=== PATIENT | female | born 1985 | race Caucasian/White ===

== ENCOUNTER → 2018-03-21 | Outpatient (CLI) | payer OTHER | LOC: GMAJ 17:14 | PROVIDERS: ATTEND Family Medicine | DX: E55.9 Vitamin D deficiency, unspecified (principal) ==

== ENCOUNTER 2019-06-03 20:45 | Emergency (ER) | payer MEDICARE, MEDICAID ==
[2019-06-03 21:07] VITALS: TEMP 99.5; O2SAT 99
--- NOTE | 2019-06-03 21:16 | ED.PDOC ---
History of Present Illness - General Chief Complaint: Lower Extremity Injury Stated Complaint: left mid foot pain R/T fall Time Seen by Provider: 06/03/19 21:12 Source: patient, other - mother Exam Limitations: no limitations - History of Present Illness Initial Comments: Pt is a 33 y/o with multiple medical problems who was at home and lost her balance and fell, hurting her left foot. Pt denies any other symptoms. Left foot pain worse with walking/bearing weight. Improved with elevation and rest. Pt denies numbness/tingling. All other ROS are negative. Occurred: just prior to arrival Pain - Lower Extremity: moderate: Left Foot - mid foot, lateral Method of Injury: fell, twisted Improving Factors: rest Worsening Factors: movement, other - standing Allergies/Adverse Reactions: Allergies NO KNOWN ALLERGY Allergy (Verified 06/03/19 21:07) Review of Systems - Review of Systems Constitutional: States: no symptoms reported EENTM: States: no symptoms reported Respiratory: States: no symptoms reported Cardiology: States: no symptoms reported Gastrointestinal/Abdominal: States: no symptoms reported Genitourinary: States: no symptoms reported Musculoskeletal: States: see HPI Skin: States: no symptoms reported Neurological: States: no symptoms reported All other Systems: Reviewed and Negative Past Medical History (General) - Patient Medical History Hx Seizures: No Hx Stroke: No Hx Dementia: No Hx Asthma: No Hx of COPD: No Hx Cardiac Disorders: No Hx Congestive Heart Failure: No Hx Pacemaker: No Hx Hypertension: No Hx Thyroid Disease: No Hx Diabetes: No Hx Gastroesophageal Reflux: No Hx Renal Disease: No Hx Cancer: No Hx of HIV: No Hx Hepatitis C: No Hx MRSA: No Surgical History: tonsillectomy, other - shunt - Vaccination History Hx Tetanus, Diphtheria Vaccination: No Hx Influenza Vaccination: No Family Medical History - Family History Mother Living Status: Still Living Physical Exam - Physical Exam General Appearance: Alert, Comfortable, Well Developed, Well Groomed, Well Hydrated, Well Nourished Eyes, Ears, Nose, Throat: PERRL/EOMI, normal ENT inspection Neck: non-tender, full range of motion, supple, normal inspection Cardiovascular/Respiratory: regular rate, rhythm, no M/R/G, normal peripheral pulses, normal breath sounds, no respiratory distress Gastrointestinal/Abdominal: non-tender, no hernia Back: normal inspection, no CVA tenderness, no vertebral tenderness Thigh/Hip: normal inspection, non-tender, no evidence of injury Leg: normal inspection, non-tender, no evidence of injury, normal ROM Knee: normal inspection, non-tender, no evidence of injury, normal ROM Ankle: normal inspection, non-tender, no evidence of injury, normal ROM Foot: bone tenderness - left foot, mid, just lateral to midline. , ecchymosis, swelling Neuro/Tendon: normal sensation, normal motor functions, normal tendon functions, no evidence tendon injury Mental Status: alert, oriented x 3 Skin: rash - small ecchymosis on left lateral mid foot. Progress - EKG/XRAY/CT XRAY: left foot Xray Comments: Soft tissue swelling, no frx Departure - Departure Clinical Impression: Sprain of left ankle or foot Disposition: Discharge to Home or Self Care Condition: Good Departure Forms: ED Discharge - Pt. Copy, Patient Portal Self Enrollment Instructions: Foot Sprain (DC) Activity: increase activity as tolerated, walking as tolerated Referrals: Sid Maxwell MD [Primary Care Provider] - 1-2 Weeks
--- NOTE | 2019-06-03 21:33 | RAD ---
EXAM DESCRIPTION: Foot, left 3 Views; 3 views CLINICAL HISTORY: 33 years Female, lateral foot swelling s/p trip and fall. COMPARISON: None. FINDINGS: Negative for acute fracture, dislocation, or radiopaque foreign body. Lateral foot tissue soft tissue swelling. IMPRESSION: Lateral foot soft tissue swelling without fracture or dislocation. Electronically signed by: Remi Low MD 06/03/2019 9:31 PM CDT
[2019-06-03 22:22] VITALS: BP 133/87
== END 2019-06-03 21:50 | disposition home or self-care (01) ==
LOC: ER 20:45
DX: S93.401A Sprain of unspecified ligament of right ankle, initial encounter (principal); S90.32XA Contusion of left foot, initial encounter; W18.30XA Fall on same level, unspecified, initial encounter; Y92.009 Unspecified place in unspecified non-institutional (private) residence as the place of occurrence of the external cause

== ENCOUNTER 2019-10-10 16:05 | Emergency (ER) | payer MEDICARE, MEDICAID ==
--- NOTE | 2019-10-10 18:16 | ED.PDOC ---
History of Present Illness - General Chief Complaint: GI Problem Stated Complaint: Recurrent nausea and vomiting Time Seen by Provider: 10/10/19 17:05 Source: patient, RN notes reviewed, Vital Signs reviewed, family - Mother Exam Limitations: no limitations - History of Present Illness Initial Comments: Patient is a 34-year-old white female who presents with ongoing nausea and vomiting since [place]. Patient denies any headaches, blurry vision, dizziness, chest pain, shortness of breath, diarrhea. Patient had similar symptoms of this 8 years ago when she needed to have her shunt replaced because it was malfunctioning. Mother is concerned that her shunt is malfunctioning. The nausea and vomiting does not appear to be related to anything, especially not eating or drinking. Patient denies any fevers. Nothing seems to make the vomiting and nausea better or worse. It comes and goes unexpectedly. Timing/Duration: changing over time, resolved prior to arrival Severity: moderate Improving Factors: nothing Worsening Factors: nothing Associated Symptoms: nausea/vomiting Allergies/Adverse Reactions: Allergies NO KNOWN ALLERGY Allergy (Verified 06/03/19 21:07) Home Medications: Ambulatory Orders Cetirizine HCl [All Day Allergy] 10 mg PO DAILY 10/10/19 Folic Acid 800 mcg PO DAILY 10/10/19 Levonorgestrel-Ethinyl Estradi [Daysee 0.15-0.03 &0.01 mg] DAILY 10/10/19 Methotrexate [Xatmep] 2.5 mg PO DAILY 10/10/19 Montelukast [Singulair] 10 mg PO DAILY 10/10/19 Ondansetron Odt [Zofran ODT] 8 mg PO Q8H PRN #12 tab 10/10/19 Review of Systems - Review of Systems Constitutional: States: no symptoms reported, see HPI EENTM: States: no symptoms reported Respiratory: States: no symptoms reported Cardiology: States: no symptoms reported Gastrointestinal/Abdominal: States: see HPI, nausea, vomiting. Denies: abdominal pain, constipation, diarrhea Genitourinary: States: no symptoms reported Musculoskeletal: States: no symptoms reported Skin: States: no symptoms reported Neurological: States: no symptoms reported Endocrine: States: no symptoms reported Hematologic/Lymphatic: States: no symptoms reported All other Systems: Reviewed and Negative Past Medical History (General) - Patient Medical History Hx Seizures: No Hx Stroke: No Hx Dementia: No Hx Asthma: No Hx of COPD: No Hx Cardiac Disorders: No Hx Congestive Heart Failure: No Hx Pacemaker: No Hx Hypertension: No Hx Thyroid Disease: No Hx Diabetes: No Hx Gastroesophageal Reflux: No Hx Renal Disease: No Hx Cancer: No Hx of HIV: No Hx Hepatitis C: No Hx MRSA: No Surgical History: tonsillectomy, other - Vaccination History Hx Tetanus, Diphtheria Vaccination: No Hx Influenza Vaccination: Yes Hx Pneumococcal Vaccination: No - Social History Hx Tobacco Use: No Hx Chewing Tobacco Use: No Hx Alcohol Use: No Hx Substance Use: No Hx Substance Use Treatment: No Hx Depression: No Feels Threatened In Home Enviroment: No Feels Threatened In a Relationship: No Hx Physical Abuse: No Hx Emotional Abuse: No Hx Suspected Abuse: No - Female History Patient is a Female of Child Bearing Age (10 -59 yrs old): Yes Patient : No - Triage Comment ED Triage Comment: N/V for the past month. The patient's family advised that in the past this has happened and it was a calcified shunt. Family Medical History - Family History Mother Living Status: Still Living Physical Exam - Physical Exam General Appearance: Alert, Comfortable, Well Developed, Well Groomed, Well Hydrated, Well Nourished Eye Exam: bilateral normal Ears, Nose, Throat: hearing grossly normal, normal ENT inspection, normal pharynx Neck: non-tender, full range of motion, supple, normal inspection Respiratory: chest non-tender, lungs clear, normal breath sounds, no respiratory distress, no accessory muscle use Cardiovascular/Chest: normal peripheral pulses, regular rate, rhythm, no edema, no gallop, no JVD, no murmur Gastrointestinal/Abdominal: normal bowel sounds, non tender, soft, no organomegaly, no pulsatile mass Back Exam: normal inspection, no CVA tenderness, no vertebral tenderness Extremity: normal range of motion, non-tender, normal inspection, no pedal edema, no calf tenderness Neurologic: slot floorman II-XII nml as tested, no motor/sensory deficits, alert, normal mood/affect, oriented x 3 Skin Exam: normal color, warm/dry Lymphatic: no adenopathy Progress - Progress Progress: Differential diagnosis: Bowel obstruction, kinked ventriculostomy tube, gastroenteritis, infectious diarrhea among others. 10/10/19 20:38 Patient has had no episodes of nausea and vomiting while here. All of her x- rays and CT are normal and do not show any gaps in the ventriculostomy tube. Plan on discharge home at this time. Will offer patient Zofran prescription. I discussed this plan of care with the patient and her mother and they voiced understanding and agreement. Sesar Rodriguez M.D. #[id number] - Results/Orders Results/Orders: EXAM DESCRIPTION: Cervical Spine, 2-3 Views (accession [id number]), Chest,1 View (accession [id number]), KUB (accession [id number]), Skull,2 Views (accession [id number]) CLINICAL HISTORY: SHUNT SERIES COMPARISON: None. FINDINGS: Frontal and lateral views of the skull, frontal view of the cervical spine, chest and abdomen using were submitted. There is a left ventriculostomy tube without discrete gap extending into the lower abdomen. An old right ventriculostomy tube is visualized with gaps and calcifications adjacent to the tube. Cardiac silhouette is within normal limits. There is no focal parenchymal or pleural disease. IMPRESSION: Left ventriculostomy tube without gaps. Electronically signed by: Teddy Mason MD 10/10/2019 8:26 PM AM DESCRIPTION: Head CT CLINICAL HISTORY: vomiting COMPARISON: June 13, 2012 TECHNIQUE: Contiguous axial images of the brain were obtained without the administration of intravenous contrast. This exam was performed according to our departmental dose-optimization program, which includes automated exposure control, adjustment of the mA and/or kV according to patient size and/or use of iterative reconstruction technique. FINDINGS: There are ventriculostomy tubes. The ventricular system is not dilated. There is a skull defect within the posterior fossa. Structural changes within the posterior fossa are unchanged. There is no acute intracranial hemorrhage or mass effect. Ventricular system is within normal limits. There is adequate alberts-white matter differentiation. There is no skull fracture. The visualized paranasal sinuses and mastoid air cells are within normal limits. IMPRESSION: No acute intracranial abnormalities. Stable examination. Electronically signed by: Teddy Mason MD 10/10/2019 6:40 PM Departure - Departure Clinical Impression: Nausea and vomiting Qualifiers: Vomiting type: unspecified Vomiting Intractability: non-intractable Qualified Code(s): R11.2 - Nausea with vomiting, unspecified Time of Disposition: 20:42 Disposition: Discharge to Home or Self Care Condition: Good Departure Forms: ED Discharge - Pt. Copy, Patient Portal Self Enrollment Instructions: Nausea and Vomiting, Adult (DC) Referrals: Sid Maxwell MD [Primary Care Provider] - 1-2 Weeks Prescriptions: Ondansetron Odt [Zofran ODT] 8 mg PO Q8H PRN #12 tab PRN Reason: Nausea Home Medications: Ambulatory Orders Cetirizine HCl [All Day Allergy] 10 mg PO DAILY 10/10/19 Folic Acid 800 mcg PO DAILY 10/10/19 Levonorgestrel-Ethinyl Estradi [Daysee 0.15-0.03 &0.01 mg] DAILY 10/10/19 Methotrexate [Xatmep] 2.5 mg PO DAILY 10/10/19 Montelukast [Singulair] 10 mg PO DAILY 10/10/19 Ondansetron Odt [Zofran ODT] 8 mg PO Q8H PRN #12 tab 10/10/19
--- NOTE | 2019-10-10 18:42 | CT ---
EXAM DESCRIPTION: Head CLINICAL HISTORY: vomiting COMPARISON: June 13, 2012 TECHNIQUE: Contiguous axial images of the brain were obtained without the administration of intravenous contrast. This exam was performed according to our departmental dose-optimization program, which includes automated exposure control, adjustment of the mA and/or kV according to patient size and/or use of iterative reconstruction technique. FINDINGS: There are ventriculostomy tubes. The ventricular system is not dilated. There is a skull defect within the posterior fossa. Structural changes within the posterior fossa are unchanged. There is no acute intracranial hemorrhage or mass effect. Ventricular system is within normal limits. There is adequate alberts-white matter differentiation. There is no skull fracture. The visualized paranasal sinuses and mastoid air cells are within normal limits. IMPRESSION: No acute intracranial abnormalities. Stable examination. Electronically signed by: Teddy Mason MD 10/10/2019 6:40 PM [facility]
--- NOTE | 2019-10-10 20:28 | RAD ---
EXAM DESCRIPTION: Cervical Spine, 2-3 Views (accession [id number]), Chest,1 View (accession [id number]), KUB (accession [id number]), Skull,2 Views (accession [id number]) CLINICAL HISTORY: SHUNT SERIES COMPARISON: None. FINDINGS: Frontal and lateral views of the skull, frontal view of the cervical spine, chest and abdomen using were submitted. There is a left ventriculostomy tube without discrete gap extending into the lower abdomen. An old right ventriculostomy tube is visualized with gaps and calcifications adjacent to the tube. Cardiac silhouette is within normal limits. There is no focal parenchymal or pleural disease. IMPRESSION: Left ventriculostomy tube without gaps. Electronically signed by: Teddy Mason MD 10/10/2019 8:[address] [facility]
--- NOTE | 2019-10-10 20:28 | RAD ---
EXAM DESCRIPTION: Cervical Spine, 2-3 Views (accession [id number]), Chest,1 View (accession [id number]), KUB (accession [id number]), Skull,2 Views (accession [id number]) CLINICAL HISTORY: SHUNT SERIES COMPARISON: None. FINDINGS: Frontal and lateral views of the skull, frontal view of the cervical spine, chest and abdomen using were submitted. There is a left ventriculostomy tube without discrete gap extending into the lower abdomen. An old right ventriculostomy tube is visualized with gaps and calcifications adjacent to the tube. Cardiac silhouette is within normal limits. There is no focal parenchymal or pleural disease. IMPRESSION: Left ventriculostomy tube without gaps. Electronically signed by: Teddy Mason MD 10/10/2019 8:26 PM [facility]
--- NOTE | 2019-10-10 20:28 | RAD ---
EXAM DESCRIPTION: Cervical Spine, 2-3 Views (accession [id number]), Chest,1 View (accession [id number]), KUB (accession [id number]), Skull,2 Views (accession [id number]) CLINICAL HISTORY: SHUNT SERIES COMPARISON: None. FINDINGS: Frontal and lateral views of the skull, frontal view of the cervical spine, chest and abdomen using were submitted. There is a left ventriculostomy tube without discrete gap extending into the lower abdomen. An old right ventriculostomy tube is visualized with gaps and calcifications adjacent to the tube. Cardiac silhouette is within normal limits. There is no focal parenchymal or pleural disease. IMPRESSION: Left ventriculostomy tube without gaps. Electronically signed by: Teddy Mason MD 10/10/2019 8:26 PM [facility]
--- NOTE | 2019-10-10 20:28 | RAD ---
EXAM DESCRIPTION: Cervical Spine, 2-3 Views (accession [id number]), Chest,1 View (accession [id number]), KUB (accession [id number]), Skull,2 Views (accession [id number]) CLINICAL HISTORY: SHUNT SERIES COMPARISON: None. FINDINGS: Frontal and lateral views of the skull, frontal view of the cervical spine, chest and abdomen using were submitted. There is a left ventriculostomy tube without discrete gap extending into the lower abdomen. An old right ventriculostomy tube is visualized with gaps and calcifications adjacent to the tube. Cardiac silhouette is within normal limits. There is no focal parenchymal or pleural disease. IMPRESSION: Left ventriculostomy tube without gaps. Electronically signed by: Teddy Mason MD 10/10/2019 8:26 PM [facility]
[2019-10-10 23:14] VITALS: BP 128/78; TEMP 99.4; O2SAT 98
== END 2019-10-10 21:15 | disposition home or self-care (01) ==
LOC: ER 16:05
DX: R11.2 Nausea with vomiting, unspecified (principal); Z98.2 Presence of cerebrospinal fluid drainage device

== ENCOUNTER → 2020-04-10 | Outpatient (CLI) | payer MEDICARE, MEDICAID | LOC: GMAJ 11:15 | PROVIDERS: ATTEND Family Medicine | DX: Z79.899 Other long term (current) drug therapy (principal) ==